=== PATIENT | male | born 1965 | race Caucasian/White ===

== ENCOUNTER 2020-01-25 12:57 | Emergency (ER) | payer OTHER ==
[2020-01-25] MEDS ORDERED: Ketorolac 30 MG/ML SDV IVPUSH ONE (13:05)
[2020-01-25] MEDS ORDERED: Sodium Chloride 0.9% 1,000 ML IV STA (13:05)
--- NOTE | 2020-01-25 13:09 | EDM.PDOC ---
ED HPI GENERAL MEDICAL PROBLEM - General Chief Complaint: Abdominal Pain Stated Complaint: [facility] Time Seen by Provider: 01/25/20 13:01 Source of Information: Reports: Patient, RN Notes Reviewed History Limitations: Reports: No Limitations - History of Present Illness INITIAL COMMENTS - FREE TEXT/NARRATIVE: 54-year-old gentleman presents emergency department a complaint of left flank pain, he was initially evaluated in the clinic in [facility] pain was so intense EMS services were called for transport to the ED for further evaluation. He states he recently underwent appendectomy about 3 weeks prior has never had a kidney stone he states the pain is constant initially started in his back but now radiates down around into his groin he has had nausea and vomiting with this no shortness of breath no chest pain - Related Data Allergies Allergy/AdvReac Type Severity Reaction Status Date / Time No Known Allergies Allergy Verified 01/25/20 13:05 Home Meds: Home Meds Metoprolol Tartrate [Lopressor] 50 mg PO Q12HR 01/25/20 [History] atorvaSTATin [Lipitor] 40 mg PO BEDTIME 01/25/20 [History] traMADol [Ultram] 50 - 100 mg PO Q6H PRN 01/25/20 [History] Past Medical History - Past Surgical History GI Surgical History: Reports: Appendectomy Social & Family History - Tobacco Use Smoking Status *Q: Never Smoker - Caffeine Use Caffeine Use: Reports: None - Recreational Drug Use Recreational Drug Use: No ED ROS GENERAL - Review of Systems Review Of Systems: See Below Constitutional: Reports: No Symptoms Respiratory: Reports: No Symptoms Cardiovascular: Reports: No Symptoms GI/Abdominal: Reports: Abdominal Pain, Nausea, Vomiting : Reports: Flank Pain ED EXAM, GI/ABD - Physical Exam Exam: See Below Exam Limited By: No Limitations General Appearance: Alert, WD/WN, No Apparent Distress Respiratory/Chest: No Respiratory Distress GI/Abdominal Exam: Normal Bowel Sounds, Soft, No Distention, Tender (Along the left flank) Course - Vital Signs Last Recorded V/S: Last Vital Signs Temp 97.3 F 01/25/20 13:04 Pulse 71 01/25/20 13:04 Resp 16 01/25/20 13:04 BP 124/78 01/25/20 13:04 Pulse Ox 97 01/25/20 13:04 - Orders/Labs/Meds Labs: Laboratory Tests 0901/25/20 01/25/20 Range/Units 13:18 13:18 13:18 WBC 13.1 H (4.5-11.0) K/uL RBC 5.78 (4.30-5.90) M/uL Hgb 14.8 (12.0-15.0) g/dL Hct 44.6 (40.0-54.0) % MCV 77 L (80-98) fL MCH 26 L (27-31) pg MCHC 33 (32-36) % Plt Count 136 L (150-400) K/uL Neut % (Auto) 83 H (36-66) % Lymph % (Auto) 9 L (24-44) % [place] % (Auto) 7 H (2-6) % Eos % (Auto) 1 L (2-4) % Baso % (Auto) 0 (0-1) % Sodium 140 (140-148) mmol/L Potassium 4.1 (3.6-5.2) mmol/L Chloride 106 (100-108) mmol/L Carbon Dioxide 22 (21-32) mmol/L Anion Gap 11.7 (5.0-14.0) mmol/L BUN 15 (7-18) mg/dL Creatinine 1.2 (0.8-1.3) mg/dL Est Cr Clr Drug Dosing 85.09 mL/min Estimated GFR (MDRD) > 60 (>60) Glucose 143 H (74-106) mg/dL Lactic Acid 2.1 H (0.4-2.0) mmol/L Calcium 8.5 (8.5-10.1) mg/dL Total Bilirubin 0.5 (0.2-1.0) mg/dL AST 27 (15-37) U/L ALT 34 (12-78) U/L Alkaline Phosphatase 92 (46-116) U/L Troponin I < 0.017 (0.000-0.056) ng/mL Total Protein 7.0 (6.4-8.2) g/dL Albumin 3.8 (3.4-5.0) g/dL Globulin 3.2 (2.3-3.5) g/dL Albumin/Globulin Ratio 1.2 (1.2-2.2) Lipase 46 L (73-393) U/L Urine Color (YELLOW) Urine Appearance (CLEAR) Urine pH (5.0-8.0) Ur Specific [place] (1.008-1.030) Urine Protein (NEGATIVE) mg/dL Urine Glucose (UA) (NEGATIVE) mg/dL Urine Ketones (NEGATIVE) mg/dL Urine Occult Blood (NEGATIVE) Urine Nitrite (NEGATIVE) Urine Bilirubin (NEGATIVE) Urine Urobilinogen (0.2-1.0) EU/dL Ur Leukocyte Esterase (NEGATIVE) Urine RBC (0-5) Urine WBC (0-5) Ur Epithelial Cells Amorphous Sediment Urine Bacteria Urine Mucus Urine Other 01/25/20 Range/Units 14:53 WBC (4.5-11.0) K/uL RBC (4.30-5.90) M/uL Hgb (12.0-15.0) g/dL Hct (40.0-54.0) % MCV (80-98) fL MCH (27-31) pg MCHC (32-36) % Plt Count (150-400) K/uL Neut % (Auto) (36-66) % Lymph % (Auto) (24-44) % [place] % (Auto) (2-6) % Eos % (Auto) (2-4) % Baso % (Auto) (0-1) % Sodium (140-148) mmol/L Potassium (3.6-5.2) mmol/L Chloride (100-108) mmol/L Carbon Dioxide (21-32) mmol/L Anion Gap (5.0-14.0) mmol/L BUN (7-18) mg/dL Creatinine (0.8-1.3) mg/dL Est Cr Clr Drug Dosing mL/min Estimated GFR (MDRD) (>60) Glucose (74-106) mg/dL Lactic Acid (0.4-2.0) mmol/L Calcium (8.5-10.1) mg/dL Total Bilirubin (0.2-1.0) mg/dL AST (15-37) U/L ALT (12-78) U/L Alkaline Phosphatase (46-116) U/L Troponin I (0.000-0.056) ng/mL Total Protein (6.4-8.2) g/dL Albumin (3.4-5.0) g/dL Globulin (2.3-3.5) g/dL Albumin/Globulin Ratio (1.2-2.2) Lipase (73-393) U/L Urine Color [place] A (YELLOW) Urine Appearance Cloudy A (CLEAR) Urine pH 6.0 (5.0-8.0) Ur Specific [place] 1.025 (1.008-1.030) Urine Protein 30 H (NEGATIVE) mg/dL Urine Glucose (UA) Negative (NEGATIVE) mg/dL Urine Ketones Negative (NEGATIVE) mg/dL Urine Occult Blood Large H (NEGATIVE) Urine Nitrite Negative (NEGATIVE) Urine Bilirubin Negative (NEGATIVE) Urine Urobilinogen 0.2 (0.2-1.0) EU/dL Ur Leukocyte Esterase Negative (NEGATIVE) Urine RBC 10-20 H (0-5) Urine WBC 0-5 (0-5) Ur Epithelial Cells Not seen Amorphous Sediment Not seen Urine Bacteria Rare Urine Mucus Not seen Urine Other Meds: Medications Discontinued Medications Generic Name Dose Route Start Last Admin Trade Name Freq PRN Reason Stop Dose Admin Hydromorphone HCl 1 mg 01/25/20 14:35 01/25/20 14:48 Dilaudid IVPUSH 01/25/20 14:36 1 mg ONETIME ONE Administration Hydromorphone HCl 1 mg 01/25/20 17:12 Dilaudid IVPUSH 01/25/20 17:13 ONETIME ONE Sodium Chloride 1,000 mls @ 999 mls/hr 01/25/20 13:05 01/25/20 13:13 Normal Saline IV 01/25/20 14:05 999 mls/hr .BOLUS STA Administration Ketorolac Tromethamine 30 mg 01/25/20 13:05 01/25/20 13:12 Toradol IVPUSH 01/25/20 13:06 30 mg ONETIME ONE Administration Prochlorperazine Edisylate 5 mg 01/25/20 13:38 01/25/20 13:43 Compazine IVPUSH 01/25/20 13:39 5 mg ONETIME ONE Administration Tamsulosin HCl 0.4 mg 01/25/20 14:35 01/25/20 14:49 Flomax PO 01/25/20 14:36 0.4 mg ONETIME ONE Administration Departure - Departure Time of Disposition: 17:17 Disposition: Home, Self-Care 01 Condition: Fair Clinical Impression: Nephrolithiasis - Discharge Information Instructions: Kidney Stones, [id number] Referrals: PCP,None [Primary Care Provider] - Forms: ED Department Discharge Additional Instructions: Use ibuprofen for baseline pain control use hydrocodone for breakthrough pain please followup with your primary care provider in 3-5 days if not better, please call return to the emergency department with worsening of symptoms. Sepsis Event Note (ED) - Evaluation Sepsis Screening Result: No Definite Risk - Focused Exam Vital Signs: Vital Signs Temp Pulse Resp BP Pulse Ox 01/25/20 13:04 97.3 F 71 16 124/78 97 01/25/20 13:01 97.3 F 71 16 124/78 97 - Assessment/Plan Plan: Assessment Acuity = acute Site and laterality = left UVJ stone 2 mm x 9 mm Etiology = unknown Manifestations = pain, nausea, vomiting Location of injury = Home Lab values = WBC elevated 13.1 consistent leukocytosis, lactic acid slightly elevated 2.[address] scan describes the stone above Plan Plan is to discharge hydrocodone 5/325 1 tab p.o. 3 times daily as needed total #10 in combination with Flomax 0.4 mg 1 tablet daily total #30. Follow-up primary care 3 to 5 days if no improvement This note was dictated using Macu[employer]AR recognition software please call with any questions on syntax or grammar.
[2020-01-25] MEDS ORDERED: Prochlorperazine 10 MG/2 ML SDV IVPUSH ONE (13:38)
--- NOTE | 2020-01-25 13:59 | CT ---
Abdomen Pelvis wo Cont CLINICAL HISTORY: Left flank pain COMPARISON: None. TECHNIQUE: Axial tomographic images are obtained from the dome of the diaphragm to the pubic symphysis without IV contrast enhancement. No oral contrast was used. Auto dosage reduction and iterative reconstruction techniques employed. FINDINGS: The lung bases are clear. The liver contains scattered small fluid attenuation structures in both lobes felt to be small hepatic cysts.. The gallbladder has a normal appearance. The spleen is mildly enlarged.. The pancreas shows diffuse fatty infiltration. There is some mild ill-definition of the margins in the pancreatic tail no mass is seen. The adrenal glands appear normal bilaterally. There is a punctate calcification in the midpole of the left kidney. Kidney is mildly hydronephrotic. The left ureter is dilated along its length. There is a 2 x 9 mm calcification at the UVJ. The aorta has a normal caliber.. There is no suspicious retroperitoneal adenopathy. There are scattered varying size lymph nodes throughout the mesentery. Short diameters range from subcentimeter to 1.3 cm. IMPRESSION: At least partial obstructing calculus at the left UVJ measuring 2 x 9 mm Hepatic cysts Scattered mildly prominent mesenteric lymph nodes. This is nonspecific. It can be seen with mesenteric adenitis Mild splenomegaly
[2020-01-25] MEDS ORDERED: Tamsulosin 0.4 MG Cap.ER PO ONE (14:35)
[2020-01-25] MEDS ORDERED: HYDROmorphone 1 MG/ML Syringe IVPUSH ONE ×2 (14:35→17:12)
[2020-01-25] MEDS ORDERED: HYDROmorphone 1 MG/ML Syringe ONE (17:17)
== END 2020-01-25 17:35 | disposition home or self-care (01) ==
LOC: JP.ED 12:57
DX: N13.2 Hydronephrosis with renal and ureteral calculous obstruction (principal); Z79.899 Other long term (current) drug therapy
CPT/HCPCS: 36415; 74176; 80053; 81001; 83605; 83690; 84484; 85025; 96361; 96374; 96375; 96376; 99284; A9270; J0780; J1170; J1885; J7030